=== PATIENT | female | born 1935 ===

== ENCOUNTER → 2017-10-11 09:00 | Outpatient (CLI) | payer OTHER | END | disposition home or self-care (01) | LOC: SONOGRAMA 09:00 | DX: K21.9 Gastro-esophageal reflux disease without esophagitis (principal); E11.319 Type 2 diabetes mellitus with unspecified diabetic retinopathy without macular edema ==

== ENCOUNTER 2021-03-31 19:44 | Inpatient (IN) | payer OTHER ==
[~2021-03-31] VITALS: Ht 175.3 cm; Wt 45.4 kg
[2021-03-31] MEDS ORDERED: METFORMIN (20:20)
[2021-03-31] MEDS ORDERED: [UNRECOGNIZED DRUG - OTHER] (20:21)
[2021-03-31] MEDS ORDERED: GLIMEPIRIDE4 M1 (20:23)
[2021-04-01] MEDS ORDERED: DOXAZOSIN MESYLA4 MG (13:32)
[2021-04-01] MEDS ORDERED: METOPROLOL SUCC25 MG (13:32)
[2021-04-01] MEDS ORDERED: METFORMIN HCL500 M4 (13:32)
== END 2021-04-17 22:42 | disposition expired | DRG 592 ==
LOC: ER 19:44 → MEDJ 04-01 07:42
PROVIDERS: ADMIT Internal Medicine; ATTEND Internal Medicine
PROC: 4A033R1 Measurement of Arterial Saturation, Peripheral, Percutaneous Approach (ICD-10-PCS; principal; 2021-04-01)
PROC: 8E0ZXY6 Isolation (ICD-10-PCS; 2021-04-01)
PROC: 4A12X4Z Monitoring of Cardiac Electrical Activity, External Approach (ICD-10-PCS; 2021-04-01)
PROC: 02HV33Z Insertion of Infusion Device into Superior Vena Cava, Percutaneous Approach (ICD-10-PCS; 2021-04-02)
PROC: 0HB6XZZ Excision of Back Skin, External Approach (ICD-10-PCS; 2021-04-16)
DX: L89.154 Pressure ulcer of sacral region, stage 4 (principal); U07.1 COVID-19; N39.0 Urinary tract infection, site not specified; Z16.39 Resistance to other specified antimicrobial drug; E11.9 Type 2 diabetes mellitus without complications; I10 Essential (primary) hypertension; Z74.01 Bed confinement status; E86.0 Dehydration; E87.6 Hypokalemia; D64.9 Anemia, unspecified; B95.2 Enterococcus as the cause of diseases classified elsewhere; B95.62 Methicillin resistant Staphylococcus aureus infection as the cause of diseases classified elsewhere; B96.4 Proteus (mirabilis) (morganii) as the cause of diseases classified elsewhere